=== PATIENT | female | born 1950 | race Caucasian/White ===

== ENCOUNTER → 2017-01-14 | Outpatient (CLI) | payer OTHER ==
[~2017-01-14] MED LIST: ALBU1AER9 INH; DOXY100C2 PO; HYDR25TA4 PO; LNX25 PO; MELO15TA3 PO; OMEP20CA9 PO; PRM/3 PO; VRPSR180 PO; ZTA10 PO
--- NOTE | 2017-01-14 13:24 | MAMMOGRAPHY REPORT ---
BILATERAL DIGITAL SCREENING MAMMOGRAM WITH CAD: 01/14/2017 TECHNIQUE: Current study was also evaluated with a Computer Aided Detection (CAD) system. Bilatera l CC and MLO views were obtained. COMPARISON: Comparison is made to exams dated: 01/11/2016 mammogram, 01/10/2015 mammogram - [facility], 03/31/2013 mammogram, and 12/23/2011 mammogram. BREAST COMPOSITION: The tissue of both breasts is heterogeneously dense, which may obscure small ma sses. FINDINGS: No suspicious masses, calcifications, or areas of architectural distortion are noted in e ither breast. There has been no significant interval change compared to prior exams. IMPRESSION: ACR BI-RADS CATEGORY 1: NEGATIVE There is no mammographic evidence of malignancy. A 1 year screening mammogram is recommended. The p atient will receive written notification of the results. Approximately 10% of breast cancers are not detected with mammography. A negative mammographic repor t should not delay biopsy if a clinically suggestive mass is present. Simona Astorga M.D. 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
== END | disposition home or self-care (01) ==
LOC: C.MAMM 12:01
PROVIDERS: ATTEND Family Medicine
DX: Z12.31 Encounter for screening mammogram for malignant neoplasm of breast (principal)

== ENCOUNTER → 2017-11-10 | Outpatient (CLI) | payer OTHER ==
[2017-11-10 18:27] LABS: BASO % 0.5 %; BASO ABS # 0.04 K/uL (0-0.2); COMPLETE YES; EOS % 1.7 %; HEMATOCRIT 42.8 % (37-47); IG% 0.3 %; LYMPH % 35.4 %; LYMPH ABS # 2.67 K/uL (1.2-3.4); MEAN CORPUSCULAR HEMOGLOBIN 31.2 pg (25-34); MEAN PLATELET VOLUME 11.4 fL (7.4-10.4); MONO % 6.5 %; NEUT % 55.6 %; PLATELET COUNT 228 K/uL (130-400); RED BLOOD COUNT 4.81 M/uL (4.2-5.4); WHITE BLOOD COUNT 7.55 K/uL (4.8-10.8)
[2017-11-10 18:53] LABS: ALT/SGPT 44 U/L (12-78); AST/SGOT 36 U/L (15-37); BLOOD UREA NITROGEN 22 mg/dl (7-18); BUN/CREATININE RATIO 31.9 (10-20); CALCIUM 8.9 mg/dl (8.5-10.1); CARBON DIOXIDE 28 mmol/L (21-32); CHLORIDE 103 mmol/L (98-107); CREATININE 0.69 mg/dl (0.60-1.20); GLUCOSE 97 mg/dl (70-99); POTASSIUM 3.7 mmol/L (3.5-5.1); SODIUM 138 mmol/L (136-145)
[2017-11-10 19:04] LABS: ALB/GLOB RATIO 1.3 (0.9-2); ALKALINE PHOSPHATASE 82 U/L (45-117); CHOLESTEROL 181 mg/dl (0-200); CHOLESTEROL/HDL RATIO 4.5; HDL CHOLESTEROL 40 mg/dl; LDL CHOLESTEROL CALCULATED 98 mg/dl; THYROID STIMULATING HORMONE 0.919 uIu/ml (0.300-4.500); TRIGLYCERIDES 213 mg/dl (0-150); VERY LOW DENSITY LIPOPROT CALC 43 mg/dl
[2017-11-12 03:31] LABS: ANTI-SS-A <1.0 NEG AI (<1.0 NEG); ANTI-SS-B <1.0 NEG AI (<1.0 NEG)
== END | disposition home or self-care (01) ==
LOC: C.LABMFLN 13:55
PROVIDERS: ATTEND Internal Medicine Rheumatology
DX: M32.9 Systemic lupus erythematosus, unspecified (principal); M15.0 Primary generalized (osteo)arthritis; M47.16 Other spondylosis with myelopathy, lumbar region; E78.5 Hyperlipidemia, unspecified; I47.1 Supraventricular tachycardia; I10 Essential (primary) hypertension

== ENCOUNTER 2018-01-31 16:15 | Emergency (ER) | payer OTHER ==
[2018-01-31 16:18] VITALS: TEMP 36.9
--- NOTE | 2018-01-31 16:25 | EMERGENCY ROOM VISIT NOTE ---
History Report prepared by Kike: Gregory Avalos Under the Supervision of: Dr. Joel Bautista M.D. First contact with patient: 16:20 Chief Complaint: KIDNEY STONE Stated Complaint: KIDNEY STONE, VOMITING History of Present Illness The patient is a 67 year old female who presents to the Emergency Room with complaints of worsening left-sided flank pain beginning at 1330 today. The patient states that she may have a kidney stone because she began to develop pain in her left flank that has since worsened and started to travel to her [facility]. She also complains of blood in her urine, nausea, and occasional vomiting. She denies any pain with urination, fever, hematemesis, melena, CP, SOB, and vaginal bleeding. She notes that she has had no previous history of kidney stones, but has a history of occasional hemorrhoids and has had a complete hysterectomy. The patient states that the only thing she had to eat today was breakfast, and notes that she does not believe that her symptoms are related to anything that she ate. She rates her pain as an 8/10. Source of History: patient Onset: 1330 today Position: abdomen (left-sided) Symptom Intensity: 8/10 Timing: constant Associated Symptoms: + nausea, + vomiting, + back pain, + urinary symptoms ( blood in her urine), No fevers, No chest pain, No SOB, No melena Note: She also denies any pain with urination, hematemesis, and vaginal bleeding. Review of Systems See HPI for pertinent positives and negatives. A total of ten systems were reviewed and were otherwise negative. Past Medical & Surgical Medical Problems: (1) Hemorrhoid Surgical Problems: (1) S/P complete hysterectomy Family History No pertinent family history stated. Social History Smoking Status: Never Smoker Marital Status: Housing Status: lives with family Occupation Status: retired Current/Historical Medications Scheduled Ascorbic Acid (Vitamin C), 500 MG PO DAILY Calcium Carbonate-Vitamin D (Calcium + D3 600-200 mg-Unit), 1 TAB PO DAILY Cholecalciferol (Vitamin D3), 2,000 UNITS PO DAILY Ciprofloxacin Hcl (Cipro), 500 MG PO BID Digoxin (Digoxin), 0.25 MG PO QPM Doxycycline Hyclate (Vibramycin), 100 MG PO QPM Ezetimibe (Zetia), 10 MG PO QPM Fexofenadine Hcl (Arcelia Allergy), 180 MG PO HS Hydrochlorothiazide (Hctz), 25 MG PO DAILY Meloxicam (Meloxicam), 15 MG PO DAILY Multivitamin (Multivitamin), 1 TAB PO DAILY Omeprazole (Prilosec), 20 MG PO QPM Ondasetron Odt (Zofran Odt), 4 MG SL TID Tamsulosin Hcl (Flomax), 0.4 MG PO DAILY Verapamil HCl (Verapamil HCl ER), 180 MG PO DAILY Scheduled PRN Homeopathic Products (Leg Cramp Relief), 1-2 TABS PO UD PRN for LEG CRAMPS Ibuprofen (Motrin), 600 MG PO TID PRN for Pain Allergies Coded Allergies: Prochlorperazine (Verified Adverse Reaction, Mild, dystonic reaction, ) Physical Exam Vital Signs Date Time Temp Pulse Resp B/P (MAP) Pulse Ox O2 Delivery O2 Flow Rate FiO2 01/31/18 17:36 83 20 153/80 97 Room Air 01/31/18 16:18 36.9 95 18 201/81 99 Room Air Physical Exam Physical Exam GENERAL: She is oriented to person, place, and time. She appears well- developed and well-nourished. She does not appear distressed. HENT: Exam performed. Head: Normocephalic and atraumatic. Right Ear: External ear normal. No mastoid tenderness. Left Ear: External ear normal. No mastoid tenderness. Mouth/Throat: The oropharynx is clear and moist. No trismus in the jaw. No dental abscesses or uvula swelling. No oropharyngeal exudate or tonsillar abscesses. EYES: Conjunctivae and EOM are normal. Pupils are equal, round, and reactive to light. Right eye exhibits no discharge. Left eye exhibits no discharge. No scleral icterus. NECK: Normal range of motion. Neck supple. No JVD present. No spinous process tenderness present. No carotid bruit present. No rigidity. No tracheal deviation and normal range of motion present. No Brudzinski's sign and no Kernig 's sign noted. CV: Normal rate, regular rhythm, normal heart sounds and intact distal pulses. There is no peripheral edema. Palpable radial pulses bue. PULM/CHEST: Effort normal and breath sounds normal. No respiratory distress. No stridor. She has no wheezes. Sjr has no rales. Chest Wall: She exhibits no tenderness. ABD: The abdomen is soft. Bowel sounds are normal. She has no distension. No mass is present. There is no tenderness. No CVA tenderness. There is no rebound , no guarding, no Limon's sign and no tenderness at McBurney's point. Rovsig negative MUSC/SKEL: Normal range of motion. There is no peripheral edema, tenderness or deformity. LYMPH: No cervical adenopathy. NEURO: She is alert and oriented to person, place, and time. She has normal strength. No cranial nerve deficit or sensory deficit. Coordination and gait normal. GCS eye subscore is 4. GCS verbal subscore is 5. GCS motor subscore is 6. Cerebellar tests wnl. SKIN: Skin is warm and dry. She is not diaphoretic. PSYCH: She has a normal mood and affect. Her behavior is normal. Judgment and thought content normal. 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 Lung bases: Lungs and pleural spaces clear. Normal heart size. No pericardial or pleural effusion. Liver: Normal morphology. Density consistent with severe hepatic steatosis. Biliary: No gross biliary ductal dilatation allowing for noncontrast technique. Gallbladder contains gallstones. Pancreas: Normal. Spleen: Normal. Adrenal glands: Normal. Kidneys and ureters: Mild left pelvocaliectasis with an obstructing 2 mm calculus at the left ureteropelvic junction. No additional renal calculus. No additional ureteral calculus. Right perinephric fat stranding and fat stranding along the renal vasculature. Right kidney normal. Right ureter normal. Bladder: Mild circumferential bladder wall thickening possibly due to underdistention. No bladder calculi. Pelvic organs: Uterus surgically absent. No adnexal masses. Bowel: Mild stool burden throughout normal caliber colon. The appendix is normal. No bowel obstruction. Peritoneal cavity: No free fluid or intraperitoneal gas. Lymph nodes: No gross lymphadenopathy allowing for noncontrast technique. Vasculature: Normal noncontrast appearance. Abdominal wall: Small fat-containing umbilical hernia. Musculoskeletal: Degenerative changes of the spine. IMPRESSION: 1. Obstructing 2 mm calculus of the left ureteropelvic junction with resultant mild left hydronephrosis. 2. Severe hepatic steatosis. Electronically signed by: Ben Lamb M.D. 01/31/2018 5:31 PM Laboratory Results 01/31/18 16:45 Red Blood Count 5.20, Mean Corpuscular Volume 86.5, Mean Corpuscular Hemoglobin 31.2, Mean Corpuscular Hemoglobin Concent 36.0, Mean Platelet Volume 10.9, Neutrophils (%) (Auto) 73.7, Lymphocytes (%) (Auto) 19.1, Monocytes (%) (Auto) 5.4, Eosinophils (%) (Auto) 1.0, Basophils (%) (Auto) 0.3, Neutrophils # (Auto) 7.25, Lymphocytes # (Auto) 1.88, Monocytes # (Auto) 0.53, Eosinophils # (Auto) 0.10, Basophils # (Auto) 0.03 01/31/18 16:45 Test 01/31/18 16:30 01/31/18 16:45 Urine Color YELLOW Urine Appearance CLOUDY (CLEAR) Urine pH >= 9.0 (4.5-7.5) Urine Specific [place] 1.018 (1.000-1.030) Urine Protein NEG (NEG) Urine Glucose (UA) NEG (NEG) Urine Ketones NEG (NEG) Urine Occult Blood 3+ (NEG) Urine Nitrite NEG (NEG) Urine Bilirubin NEG (NEG) Urine Urobilinogen NEG (NEG) Urine Leukocyte Esterase SMALL (NEG) Urine WBC (Auto) 1-5 /hpf (0-5) Urine RBC (Auto) >30 /hpf (0-4) Urine Hyaline Casts (Auto) 1-5 /lpf (0-5) Urine Epithelial Cells (Auto) >30 /lpf (0-5) Urine Bacteria (Auto) NEG (NEG) White Blood Count 9.84 K/uL (4.8-10.8) Red Blood Count 5.20 M/uL (4.2-5.4) Hemoglobin 16.2 g/dL (12.0-16.0) Hematocrit 45.0 % (37-47) Mean Corpuscular Volume 86.5 fL (80-100) Mean Corpuscular Hemoglobin 31.2 pg (25-34) Mean Corpuscular Hemoglobin Concent 36.0 g/dl (32-36) Platelet Count 255 K/uL (130-400) Mean Platelet Volume 10.9 fL (7.4-10.4) Neutrophils (%) (Auto) 73.7 % Lymphocytes (%) (Auto) 19.1 % Monocytes (%) (Auto) 5.4 % Eosinophils (%) (Auto) 1.0 % Basophils (%) (Auto) 0.3 % Neutrophils # (Auto) 7.25 K/uL (1.4-6.5) Lymphocytes # (Auto) 1.88 K/uL (1.2-3.4) Monocytes # (Auto) 0.53 K/uL (0.11-0.59) Eosinophils # (Auto) 0.10 K/uL (0-0.5) Basophils # (Auto) 0.03 K/uL (0-0.2) RDW Standard Deviation 40.9 fL (36.4-46.3) RDW Coefficient of Variation 12.9 % (11.5-14.5) Immature Granulocyte % (Auto) 0.5 % Immature Granulocyte # (Auto) 0.05 K/uL (0.00-0.02) Anion Gap 8.0 mmol/L (3-11) Estimated GFR () 66.4 Estimated GFR (Non- 57.3 BUN/Creatinine Ratio 17.6 (10-20) Lactic Acid Level 1.8 mmol/L (0.4-2.0) Calcium Level 9.7 mg/dl (8.5-10.1) Total Bilirubin 0.6 mg/dl (0.2-1) Aspartate Amino Transf (AST/SGOT) 35 U/L (15-37) Alanine Aminotransferase (ALT/SGPT) 52 U/L (12-78) Alkaline Phosphatase 95 U/L (45-117) Total Protein 7.9 gm/dl (6.4-8.2) Albumin 4.2 gm/dl (3.4-5.0) Globulin 3.7 gm/dl (2.5-4.0) Albumin/Globulin Ratio 1.1 (0.9-2) Lipase 347 U/L (73-393) Laboratory results reviewed by me Medications Administered Medications (Trade) Dose Ordered Sig/Ching Route Start Time Stop Time Status Last Admin Dose Admin Ondansetron HCl (Zofran Inj) 4 mg NOW STAT IV 01/31/18 16:32 01/31/18 16:35 DC 01/31/18 16:49 4 MG Sodium Chloride 1,000 ml @ 999 mls/hr Q1H1M STAT IV 01/31/18 16:32 01/31/18 17:32 DC 01/31/18 16:49 999 MLS/HR Ketorolac Tromethamine (Toradol Inj) 15 mg NOW STAT IV 01/31/18 16:32 01/31/18 16:35 DC 01/31/18 16:50 15 MG Ciprofloxacin (Cipro Tab) 500 mg NOW STAT PO 01/31/18 17:47 01/31/18 17:55 DC 01/31/18 18:00 500 MG ED Course 1625: The patient was evaluated in room A9. A complete history and physical exam was performed. 1632: Toradol Inj 15mg IV, Zofran Inj 4mg IV, Sodium Chloride 1000 ml @ 999 mls/ hr IV 1747: Ciprofloxacin 500mg PO 1748: I reevaluated and updated the patient. The patient's vital signs were stable and her labs were normal except for her urine. She feels much better after received IV fluids, Zofran and Toradol. I explained to her that she has a kidney stone that should be able to pass on its own. She agrees that she can pass the kidney stone. She will be discharged with analgesia, anti-nausea medication, and Flomax. Labs within normal limits with the exception of the patient's urine was a contaminated sample, but there is a possibility of bacteria. She will be started prophylactically on Cipro. 1759: DISCHARGE - Plan of care discussed with patient and questions answered. The patient was given both verbal and printed discharge instructions. The patient verbalized understanding and ability to comply. The patient is to seek outpatient follow up as noted in the discharge instructions. The patient verbalized understanding and ability to comply. The patient is discharged in stable condition. The patient was instructed to return for worsening symptoms. Medical Decision I reevaluated and updated the patient. The patient's vital signs were stable and her labs were normal except for her urine. She feels much better after received IV fluids, Zofran and Toradol. I explained to her that she has a kidney stone that should be able to pass on its own. She agrees that she can pass the kidney stone. She will be discharged with analgesia, anti-nausea medication, and Flomax. Labs within normal limits with the exception of the patient's urine was a contaminated sample, but there is a possibility of bacteria. She will be started prophylactically on Cipro Head Trauma GCS Score: 15 Medication Reconcilliation Current Medication List: was personally reviewed by me Blood Pressure Screening Patient's blood pressure: Elevated blood pressure Blood pressure disposition: Elevated BP felt to be situational Impression Primary Impression: Kidney stone Scribe Attestation The scribe's documentation has been prepared under my direction and personally reviewed by me in its entirety. I confirm that the note above accurately reflects all work, treatment, procedures, and medical decision making performed by me. The chart was completed utilizing [employer] Speech voice recognition software. Grammatical errors, random word insertions, pronoun errors, and incomplete sentences are an occasional consequence of this system due to software limitations, ambient noise, and hardware issues. Any formal questions or concerns about the content, text, or information contained within the body of this dictation should be directly addressed to the physician for clarification. Departure Information Dispostion Home / Self-Care Prescriptions Ondasetron Odt (ZOFRAN ODT) 4 Mg Tab 4 MG SL TID for Nausea, #30 TAB Prov: Joel Bautista M.D. 01/31/18 Ibuprofen (Motrin) 600 Mg Tab 600 MG PO TID Y for Pain for 5 Days, #15 TAB WITH FOOD Prov: Joel Bautista M.D. 01/31/18 Tamsulosin Hcl (FLOMAX) 0.4 Mg Cap 0.4 MG PO DAILY for 7 Days, #7 CAP Prov: Joel Bautista M.D. 01/31/18 Ciprofloxacin Hcl (CIPRO) 500 Mg Tab 500 MG PO BID for 5 Days, #10 TAB Prov: Joel Bautista M.D. 01/31/18 Referrals Betsy Messina M.D. (PCP) Forms HOME CARE DOCUMENTATION FORM, IMPORTANT VISIT INFORMATION Patient Instructions My [facility] Additional Instructions Stay well hydrated. Return to the emergency department if you develop fever greater than 100.4, inability to urinate, or cannot stop vomiting.
[2018-01-31] MEDS ORDERED: KETOROLAC TROMETHAMINE 15 MG/ML VIAL IV STA (16:32)
[2018-01-31] MEDS ORDERED: ONDANSETRON INJ 2 MG/ML 2 ML VIAL IV STA (16:32)
[2018-01-31] MEDS ORDERED: SODIUM CHLORIDE 0.9% 1000ML 1,000 ML IV STA (16:32)
[2018-01-31] MEDS ORDERED: KETOROLAC TROMETHAMINE 30 MG/ML VIAL ONE (16:48)
[2018-01-31 17:00] LABS: BASO % 0.3 %; BASO ABS # 0.03 K/uL (0-0.2); HEMOGLOBIN 16.2 g/dL (12.0-16.0); IG# 0.05 K/uL (0.00-0.02); LYMPH % 19.1 %; LYMPH ABS # 1.88 K/uL (1.2-3.4); MEAN CELL VOLUME 86.5 fL (80-100); MEAN CORPUSCULAR HEMOGLOBIN 31.2 pg (25-34); MEAN PLATELET VOLUME 10.9 fL (7.4-10.4); MONO % 5.4 %; MONO ABS # 0.53 K/uL (0.11-0.59); NEUT % 73.7 %; NEUT ABS # 7.25 K/uL (1.4-6.5); PLATELET COUNT 255 K/uL (130-400); RED CELL DISTRIBUTION WIDTH CV 12.9 % (11.5-14.5); RED CELL DISTRIBUTION WIDTH SD 40.9 fL (36.4-46.3); WHITE BLOOD COUNT 9.84 K/uL (4.8-10.8)
[2018-01-31 17:18] LABS: ALBUMIN 4.2 gm/dl (3.4-5.0); ALT/SGPT 52 U/L (12-78); BLOOD UREA NITROGEN 18 mg/dl (7-18); CALCIUM 9.7 mg/dl (8.5-10.1); CARBON DIOXIDE 29 mmol/L (21-32); CREATININE 1.02 mg/dl (0.60-1.20); GLUCOSE 153 mg/dl (70-99); LIPASE 347 U/L (73-393); POTASSIUM 3.6 mmol/L (3.5-5.1); SODIUM 137 mmol/L (136-145)
[2018-01-31 17:21] LABS: ALKALINE PHOSPHATASE 95 U/L (45-117); AST/SGOT 35 U/L (15-37); TOTAL PROTEIN 7.9 gm/dl (6.4-8.2)
--- NOTE | 2018-01-31 17:33 | DIAGNOSTIC IMAGING REPORT ---
ABD/PELVIS WITHOUT FOR STONE CLINICAL HISTORY: 67 years-old Female presenting with L flank pain r/o kidney stone. TECHNIQUE: Multidetector CT of the abdomen and pelvis was performed without the use of intravenous contrast. IV contrast: None. A dose lowering technique was used consistent with the principles of ALARA (as low as reasonably achievable). COMPARISON: None. CT DOSE (mGy.cm): The estimated cumulative dose is 1417.11 mGy.cm. 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 Lung bases: Lungs and pleural spaces clear. Normal heart size. No pericardial or pleural effusion. Liver: Normal morphology. Density consistent with severe hepatic steatosis. Biliary: No gross biliary ductal dilatation allowing for noncontrast technique. Gallbladder contains gallstones. Pancreas: Normal. Spleen: Normal. Adrenal glands: Normal. Kidneys and ureters: Mild left pelvocaliectasis with an obstructing 2 mm calculus at the left ureteropelvic junction. No additional renal calculus. No additional ureteral calculus. Right perinephric fat stranding and fat stranding along the renal vasculature. Right kidney normal. Right ureter normal. Bladder: Mild circumferential bladder wall thickening possibly due to underdistention. No bladder calculi. Pelvic organs: Uterus surgically absent. No adnexal masses. Bowel: Mild stool burden throughout normal caliber colon. The appendix is normal. No bowel obstruction. Peritoneal cavity: No free fluid or intraperitoneal gas. Lymph nodes: No gross lymphadenopathy allowing for noncontrast technique. Vasculature: Normal noncontrast appearance. Abdominal wall: Small fat-containing umbilical hernia. Musculoskeletal: Degenerative changes of the spine. IMPRESSION: 1. Obstructing 2 mm calculus of the left ureteropelvic junction with resultant mild left hydronephrosis. 2. Severe hepatic steatosis. Electronically signed by: Ben Lamb M.D. 01/31/2018 5:31 PM Dictated Date/Time: 01/31/2018 5:27 PM
[2018-01-31] MEDS ORDERED: CIPROFLOXACIN 500 MG TAB PO STA (17:47)
[2018-01-31] MEDS ORDERED: CIPR-255 PO (17:58)
[2018-01-31] MEDS ORDERED: TAMS0.4C38 PO (17:58)
[2018-01-31] MEDS ORDERED: ONDA4TAB10 SL (17:59)
[2018-01-31] MEDS ORDERED: IBUP600T44 PO (17:59)
[2018-01-31] MEDS ORDERED: MULT-506 PO (18:07)
[2018-01-31] MEDS ORDERED: HOME1TAB18 PO (18:07)
[2018-01-31] MEDS ORDERED: CHOL20007 PO (18:07)
[2018-01-31] MEDS ORDERED: FEXO1TAB49 PO (18:07)
[2018-01-31] MEDS ORDERED: CALC-388 PO (18:07)
[2018-01-31] MEDS ORDERED: MELO-83 PO (18:07)
[2018-01-31] MEDS ORDERED: ASCA500 PO (18:07)
[2018-01-31] MEDS ORDERED: ONDANSETRON HOME PACK 4MG OD TAB ONE (20:13)
[2018-01-31] MEDS ORDERED: ONDANSETRON HOME PACK 4MG OD TAB PO ONE (20:15)
[2018-01-31 20:23] VITALS: BP 155/75; PULSE 85; O2SAT 96
== END 2018-01-31 20:26 | disposition home or self-care (01) ==
LOC: C.EDB 16:17 → C.EDA 20:26
DX: N20.0 Calculus of kidney (principal); Z90.710 Acquired absence of both cervix and uterus; Z79.899 Other long term (current) drug therapy; Z88.8 Allergy status to other drugs, medicaments and biological substances

== ENCOUNTER → 2018-06-17 | Outpatient (CLI) | payer OTHER ==
[~2018-06-17] MED LIST changes: -ALBU1AER9 INH; +ASCA500 PO; +CALC-388 PO; +CHOL20007 PO; +CIPR-255 PO; +FEXO1TAB49 PO; +HOME1TAB18 PO; +MELO-83 PO; -MELO15TA3 PO; +MULT-506 PO; +ONDA4TAB10 SL; -PRM/3 PO
--- NOTE | 2018-06-17 12:55 | DIAGNOSTIC IMAGING REPORT ---
LUMBAR SPINE W/O CONTRAST CLINICAL HISTORY: 67 years-old Female presenting with M54.16 Right lumbar radiculopathy, lumbar pain that radiates into the right leg, numbness in the right leg while standing, symptoms began one year ago. TECHNIQUE: Multisequence, multiplanar MR imaging of the lumbar spine was performed without the use of intravenous contrast. IV contrast: None. COMPARISON: Comparison made to CT of the abdomen and pelvis from 01/31/2018. FINDINGS: Localizer images: Indeterminant T2 hyperintense lesion in the lateral aspect of the interpolar region of the left kidney. Normal lumbar lordosis apart from 4 mm of grade 1 anterolisthesis of L4 on L5 and mild levoscoliotic curvature centered at L4-5. Trace endplate edema noted anteriorly at L5-S1 along with fatty endplate changes (Modic type I and II). Vertebral bodies otherwise maintain normal height, alignment, and bone marrow signal intensity. Intervertebral disc desiccation at L4-5 and L5-S1 with significant disc height loss at L5-S1. Additional degenerative changes further detailed below: L1-2: No significant neural foraminal or spinal canal narrowing. L2-3: No significant neural foraminal or spinal canal narrowing. L3-4: Minimal eccentric disc bulge effacing the bilateral neural foramina. Mild facet arthropathy and ligamentum flavum thickening also present. This results in mild bilateral neural foraminal narrowing. No significant spinal canal narrowing. L4-5: Advanced facet arthropathy with fluid noted in the facet joints, right greater than left. Ligamentum flavum thickening also very pronounced. This results and posterior effacement of the ventral thecal sac, which combined with anterolisthesis results in moderate to severe spinal canal narrowing. Trace residual CSF signal intensity. Moderate to severe right and moderate left neural foraminal narrowing. Mass effect on the exiting right L4 nerve root suspected. Prominent synovial cyst arising from the right facet joint at L4-5 results in significant effacement of the right posterior thecal sac at L5 (series 4 image 9; series 5 image 24). Suspected mass effect on the transiting nerve roots. L5-S1: Annular fissure noted. Disc bulge and facet arthropathy result in moderate to severe right and moderate left neural foraminal narrowing. No significant spinal canal narrowing. However, mass effect on the exiting right L5 nerve root is evident (series 5 image 26). This is due to the eccentricity of the disc bulge. Spinal cord ends in good position at L1. Cauda equina normal in morphology apart from crowding as mentioned above. No paraspinal muscle edema. Nonspecific subcutaneous edema in the lumbar region. Remaining soft tissues within normal limits. IMPRESSION: 1. Indeterminate T2 hyperintense lesion in the lateral aspect of the interpolar region of the left kidney only visualized on localizer images. Renal ultrasound could be considered if there is clinical concern in the presence of prior left renal pathology on CT from January. 2. Multilevel degenerative changes with moderate to severe right neural foraminal narrowing at L4-5 and L5-S1. Additionally mass effect on the exiting right L4 and right L5 nerve root suspected. 3. Prominent synovial cyst arising from the right facet joint at L4-5 results in significant effacement of the right posterior thecal sac at L5. Suspected mass effect on transiting nerve roots. 4. Moderate to severe spinal canal stenosis at L4-5. No convincing MR evidence of cauda equina impingement. Electronically signed by: Ben Lamb M.D. 06/17/2018 12:53 PM Dictated Date/Time: 06/17/2018 12:44 PM
== END | disposition home or self-care (01) ==
LOC: C.MRI 11:38
PROVIDERS: ATTEND Family Medicine
DX: M54.16 Radiculopathy, lumbar region (principal)